=== PATIENT | female | born 1965 | race Caucasian/White ===

== ENCOUNTER 2018-10-03 05:27 | Emergency (ER) | payer MEDICARE, OTHER ==
[~2018-10-03] VITALS: Ht 160 cm; Wt 68.0 kg
[~2018-10-03 05:27] MED LIST: BIOTIN10000 MC1 PO; FAMO40 PO; FENT25TP TOP; METO25ER PO; Nortriptyline H50 MG PO; TECFIDERA240 MG PO; VITAMIN D22000 UNIT; VITAMIN D33000 UNIT PO
[2018-10-03 07:05] LABS: Source, Urine Clean Catch
[2018-10-03 07:07] LABS: Alanine Aminotransfer (ALT/SGP 32 U/L (12-78); Albumin, Blood 3.9 g/dL (3.4-5.0); Albumin/Globulin Ratio 0.9 (0.8-1.8); Alk Phos 65 U/L (50-136); Anion Gap 8 mmol/L (6-16); Aspartate Aminotrans (AST/SGOT 22 U/L (12-37); Bilirubin, Total 0.2 mg/dL (0.1-1.0); Blood Urea Nitrogen 17 mg/dL (8-24); Bun/Creatinine Ratio 22.2 (12.0-20.0); CO2, Blood 26 mmol/L (21-32); Calcium, Blood 9.4 mg/dL (8.5-10.1); Chloride, Blood 104 mmol/L (98-108); Creatinine, Blood 0.77 mg/dL (0.40-1.00); Globulin, Blood 4.3 g/dL (2.2-4.0); Glomerular Filtration Rate >60 (60-); Glucose, Blood 150 mg/dL (70-99); Sodium, Blood 138 mmol/L (136-145); Total Protein, Blood 8.2 g/dL (6.4-8.2)
[2018-10-03 07:14] LABS: Bilirubin, Urine Neg (Neg); Blood, Urine 5+ (Neg); Glucose Qualitative, Urine Neg (Neg); Ketones, Urine 1+ (Neg); Leukocyte Esterase, Urine 1+ (Neg); Nitrite, Urine Neg (Neg); Protein, Urine 3+ (Neg); Urobilinogen, Urine NORM (Normal)
[2018-10-03 07:23] LABS: BASOPHILS ABSOLUTE AUTO 0.06 K/mm3 (0.00-0.23); BASOPHILS PERCENT AUTO 1 % (0-2); EOSINOPHILS ABSOLUTE AUTO 0.03 K/mm3 (0.00-0.68); EOSINOPHILS PERCENT AUTO 0 % (0-6); Hematocrit 36.7 % (33.0-51.0); IMMATURE GRAN ABSOLUTE AUTO 0.05 K/mm3 (0.00-0.10); IMMATURE GRAN PERCENT AUTO 0 % (0-1); LYMPHOCYTES ABSOLUTE AUTO 0.91 K/mm3 (0.84-5.20); LYMPHOCYTES PERCENT AUTO 7 % (21-46); MONOCYTES ABSOLUTE AUTO 0.52 K/mm3 (0.16-1.47); MONOCYTES PERCENT AUTO 4 % (4-13); Mean Corpuscular HGB 29.2 pg (26.0-34.0); Mean Corpuscular HGB Conc 32.7 g/dL (31.5-36.5); Mean Corpuscular Volume 89 fL (80-100); Mean Platelet Volume 9.3 fL (9.1-12.4); NEUTROPHILS ABSOLUTE AUTO 10.97 K/mm3 (1.96-9.15); NEUTROPHILS PERCENT AUTO 88 % (41-73); Platelet Count 359 K/mm3 (150-400); RDW Coefficient Variation 12.5 % (11.7-14.2); RDW Standard Deviation 40.8 fL (35.1-46.3); Red Blood Cell Count 4.11 M/mm3 (3.80-5.20); White Blood Cell Count 12.54 K/mm3 (4.00-11.30)
[2018-10-03 07:59] LABS: Appearance, Urine Clear (Clear); Color, Urine Yellow (P-Yellow)
[2018-10-03 08:01] LABS: Squamous Epithelial Cells Mod /hpf (Few)
[2018-10-03 08:03] LABS: Bacteria Mod /hpf
[2018-10-03] MEDS ORDERED: Zofran4 MG PO (09:06)
[2018-10-03] MEDS ORDERED: Norco 5-325 Ta1 EACH PO (09:06)
== END 2018-10-03 09:02 | disposition home or self-care (01) ==
LOC: ER 05:27
PROVIDERS: Internal Medicine
DX: R10.11 Right upper quadrant pain (principal); Z88.1 Allergy status to other antibiotic agents; Z88.2 Allergy status to sulfonamides; Z88.8 Allergy status to other drugs, medicaments and biological substances; Z88.5 Allergy status to narcotic agent; Z79.899 Other long term (current) drug therapy; Z79.891 Long term (current) use of opiate analgesic; K21.9 Gastro-esophageal reflux disease without esophagitis
CPT/HCPCS: 36415; 74176; 80053; 81001; 85025; 87086; 96374; 96375; 99284-25; J1170; J1885; J2405

== ENCOUNTER 2018-11-26 07:40 | Day surgery (SDC) | payer MEDICARE, OTHER ==
[~2018-11-26] VITALS: Ht 157.5 cm; Wt 77.6 kg
[~2018-11-26 07:40] MED LIST changes: +FENT50TP TOP; +Norco 5-325 Ta1 EACH PO; +STOOL SOFTENER100 MG PO; +VIACTIV SOFT C1 EAC1 PO; +Zofran4 MG PO
--- NOTE | 2018-11-26 08:30 | NUR ---
History, Chart, Medications and Allergies reviewed before start of procedure. Patient confirms NPO status and agrees with scheduled surgery. Lungs clear T/O to Auscultation. Patient reports completing Chlorhexadine shower X2 prior to admission to hospital. Patient States Post-Procedure ride home has been arranged. Pre-Op teaching done. Pt verbalizes understanding.
--- NOTE | 2018-11-26 09:06 | NUR ---
MOTHER OF PATIENT BACK TO BEDSIDE, TRACKER EXPLAINED AND OPPORTUNITY FOR QUESTIONS PROVIDED. PROVIDED FOR COMFORT AND AWAITING TEAM.
--- NOTE | 2018-11-26 09:36 | NUR ---
BLOW MOLDING MACHINE TENDER REPORT COMPLETED AT BEDSIDE, WILL AWAIT HER CALL FOR OR READY.
--- NOTE | 2018-11-26 09:36 | NUR ---
APPLIED SCOPOLAMINE PATCH BEHIND L EAR PER DR ORDER. ADMINISTERED 2 MG IV VERSED. PATIENT DECLINED BR TO VOID.
--- NOTE | 2018-11-26 11:45 | NUR ---
PT AWAKE, CONVERSING WITH NURSING STAFF. STATES PAIN 5/10. AGREES TO SIPPING ON FLUIDS, EATING CRACKERS, AND THEN TAKING PAIN PILL FOR PAIN CONTROL. MOTHER AT BEDSIDE VISITING. INCISIONS WITHOUT DRAINAGE.
--- NOTE | 2018-11-26 12:04 | NUR ---
MEDICATED FOR C/O NAUSEA AT THIS TIME. ZOFRAN 4MG IV GIVEN PER ORDERS.
--- NOTE | 2018-11-26 12:16 | NUR ---
NAUSEA RELIEVED WITH ZOFRAN. ADMINISTERED PAIN MEDICATION PER MD ORDERS FOR POST OPERATIVE PAIN LEVEL 5/10.
--- NOTE | 2018-11-26 12:24 | NUR ---
REVIEWED DISCHARGE INSTRUCTIONS WITH PATIENT AND MOTHER, BOTH OF WHOM VERBALIZE UNDERSTANDING OF ALL INSTRUCTIONS GIVEN. VSS.
--- NOTE | 2018-11-26 12:39 | NUR ---
IV D/C TIP INTACT. PT DISCHARGED HOME VIA W/C WITH MOTHER TO DRIVE HER AFTER DRESSING WITH ASSISTANCE.
== END 2018-11-26 22:57 | disposition home or self-care (01) ==
LOC: ORSCMMR 07:40 → ORD 10:15 → ORSCMMR 22:57
PROVIDERS: Surgery
PROC: BF031ZZ Plain Radiography of Gallbladder and Bile Ducts using Low Osmolar Contrast (ICD-10-PCS; principal; 2018-11-26 09:30)
PROC: 0FT44ZZ Resection of Gallbladder, Percutaneous Endoscopic Approach (ICD-10-PCS; principal; 2018-11-26 09:30)
DX: K80.11 Calculus of gallbladder with chronic cholecystitis with obstruction (principal); I10 Essential (primary) hypertension; G35 Multiple sclerosis; J45.909 Unspecified asthma, uncomplicated; Z79.899 Other long term (current) drug therapy
CPT/HCPCS: 74300; C1729; J0690; J1100; J1200; J1885; J2250; J2370; J2405; J2710; J3010; J7120

== ENCOUNTER → 2021-12-29 | Outpatient (CLI) | payer MEDICARE, OTHER | END | disposition home or self-care (01) | LOC: LAB 11:19 → LAB SHORT 11:19 → PLD 11:19 | DX: C44.311 Basal cell carcinoma of skin of nose (principal) | CPT/HCPCS: 88305 ==